=== PATIENT | male | born 1965 | race Caucasian/White ===

== ENCOUNTER → 2016-10-11 | Outpatient (CLI) | payer BC ==
--- NOTE | 2016-10-15 21:41 | RESP ---
DATE OF SERVICE: 10/11/2016 The patient underwent full pulmonary function testing without any bronchodilator administration. FEV1 to FVC ratio was 71%, FEV1 was normal at 103% of predicted, FVC was likewise normal at 6.07 liters at 131% of predicted. Diffusion capacity was slightly decreased, total lung capacity was slightly elevated. IMPRESSION: 1. Mild air trapping compatible with small airway disease. 2. No significant obstructive lung disorder. ERICH GOEL MD DR: CM/nevin JOB#: [id number] / [id number]
== END | disposition home or self-care (01) ==
LOC: PF 09:47
PROVIDERS: ATTEND Family Medicine
DX: J43.9 Emphysema, unspecified (principal)
CPT/HCPCS: 94010; 94729